=== PATIENT | female | born 1950 | race Caucasian/White ===

== ENCOUNTER 2016-05-16 19:13 | Emergency (ER) | payer MEDICARE ==
[~2016-05-16] VITALS: Ht 152.4 cm; Wt 52.3 kg
[~2016-05-16 19:13] MED LIST: BUDE10.2 IH; BUPR1FIL3 SL; BUSP5TAB3 PO; CITA20TA PO; CLON0.1T PO; CLON0.2T PO; HYDR-3740 PO; LEVO75TA4 PO; MORP-33 PO; NORT10CA PO; ONDA4TAB9 PO; ONDA8TAB10 PO; TIZA4CAP PO
[2016-05-16 19:19] VITALS: BP 119/68; PULSE 106; RESP 18; O2SAT 95
[2016-05-16 19:58] LABS: BASOPHILS % (AUTO) 0.3 % (0-3)
[2016-05-16 20:06] LABS: EOSINOPHILS % (AUTO) 0.8 % (0-5); MONOCYTES % (AUTO) 4.9 % (4-12); Mean Corpuscular Hemoglobin 30.7 pg (27.0-35.0); Mean Corpuscular Volume 88.1 fL (81-100); NEUTROPHILS % (AUTO) 85.2 % (40-74); Platelet Count 409 bil/L (150-400)
--- NOTE | 2016-05-16 20:17 | DRSVH ---
PROCEDURE: X-RAY CHEST ONE VIEW, PORTABLE ([id number]) INDICATIONS: cough, sob TECHNIQUE: One view of the chest was acquired. COMPARISON: [facility], CR, CHEST 2VW, 07/06/2013, 14:04. [facility], CR, C HEST 1VW (PORTABLE), 08/14/2009, 10:28. FINDINGS: Surgical changes and devices: None. Lungs and pleura: Bilateral chronic interstitial and airspace infiltrates, more pronounced in lower lobes. No pleural effusions or pneumothorax. Mediastinum: Mediastinal contours appear normal. Heart size is normal. Bones and chest wall: No suspicious bony lesions. Overlying soft tissues appear unremarkable. IMPRESSION: Bilateral chronic interstitial and airspace infiltrates consistent with chronic interstit ial lung disease although superimposed acute pneumonia cannot be excluded. Dictated by: Jan Billingsley M.D. on 05/16/2016 at 20:14 Approved by: Jan Billingsley M.D. on 05/16/2016 at 20:15
[2016-05-16 20:20] LABS: TROPONIN T < 0.010 ug/L (0.0-0.011)
--- NOTE | 2016-05-16 21:05 | ED.REPORT ---
HPI-Chest Pain 40 and Over Date of Service May 16, 2016 ED Provider: Clara Hu MD Patient is a 65 year old female with a history of COPD, hypertension, and retroperitoneal follicular lymphoma presents to the ED from Urgent Care due to increasing shortness of breath, chest pain, and productive cough after 3 weeks of upper respiratory symptoms. The patient states that she came down with a cold several weeks ago, which she assumes she got from her foster child. Patient was recently down in [place] due to a family emergency and was seen at an Urgent Care for her symptoms. Patient was started on Cephalexin and she improved for some time. However her symptoms then returned, developing a productive cough with green sputum. She reports chest pain with cough. Patient presented to Urgent Care today, who sent her to the ED to rule out PE vs. pneumonia. Patient previously had pneumonia 4 years ago and states that she did not have a pneumonia vaccine this year. She smokes <1ppd of cigarettes. Patient states that they drove down to [place]. She reports a diaphoresis, subjective fever, nausea, vomiting, swelling in her legs, or pain in her legs. Patient is not on chronic steroids and confirms that she typically has an O2 sat between 90-92%. Nursing Notes Stated Complaint: SENT FROM URGENT CARE POSS BLOOD CLOT Chief Complaint: Respiratory Complaints Nursing Notes Reviewed: Yes Allergies: Coded Allergies: metoclopramide HCl (Verified Allergy, Severe, highly anxous, 11/29/15) Antihistamines - Alkylamine (Verified Allergy, Unknown, Agitation, 11/29/15 ) hydroxyzine HCl (Verified Allergy, Unknown, Agitation, 11/29/15) hydroxyzine pamoate (Verified Allergy, Unknown, Agitation, 11/29/15) morphine (Verified Allergy, Unknown, Rash,Itching,, 11/29/15) tramadol (Verified Allergy, Unknown, Rash,Itching,, 11/29/15) Uncoded Allergies: Diphenhydramine (Adverse Reaction, Unknown, 02/03/05) HYPERACTIVE Scheduled Budesonide/Formoterol 80-4.5 mcg Inh (Symbicort 80-4.5 mcg Inh) 120 Puff/10.2 Gm Inhaler 1 PUFF IH BID Buprenorphine HCl/Naloxone HCl (Suboxone 8 mg-2 mg Sl Film) 1 Each Film 1 EACH SL BID Buspirone (Buspirone) 5 Mg Tablet 5 MG PO BID Citalopram Hydrobromide (Celexa) 20 Mg Tablet 20 MG PO DAILY Clonidine (Clonidine) 0.2 Mg Tablet 0.2 MG PO BID Doxycycline Hyclate (Doxycycline Hyclate) 100 Mg Capsule 100 MG PO BID Levothyroxine (Levothyroxine) 75 Mcg Tablet 75 MCG PO DAILY Morphine Sulfate ER (Morphine Sulfate ER) 30 Mg Tablet.er 30 MG PO TID Nortriptyline (Nortriptyline) 10 Mg Capsule 10 MG PO HS Ondansetron ODT (Ondansetron ODT) 8 Mg Tab.rapdis 8 MG PO QID Prednisone (PredniSONE) 20 Mg Tablet 40 MG PO DAILY Scheduled PRN Clonidine (Clonidine) 0.1 Mg Tablet 0.1 MG PO BID PRN PRN For Agitation Hydrocodone-Acetaminophen 10-325 mg (Hydrocodone-Acetaminophen 10-325 mg) 1 Tab Tablet 1 TAB PO TID PRN PRN For Pain Ondansetron ODT (Zofran ODT) 4 Mg Tablet 4 MG PO Q4H PRN PRN For Nausea Tizanidine (Zanaflex) 4 Mg Capsule 4 MG PO TID PRN PRN PRN For Pain General Time Seen by MD: 21:05 Chief Complaint Chest aching, Shortness of breath, Other (cough) Hx Obtained From: Patient Arrived By: Walk-in Sudden in Onset?: No Onset Occurred: More than a week ago... (worsening for the past few days) Symptom Duration: Since onset Location: : Chest left: Chest right Quality: Painful Severity: Current: Mild Severity: Maximum: Mild Recent Healthcare: No recent doctor visit, No recent hospitalization Similar Sx Previous: No Past Medical History Past Medical History Anxiety history of chronic narcotic use- on Suboxone localized grade 1, bulky retroperitoneal follicular lymphoma COPD fibromyalgia Reports: GERD, Hypertension Past Surgical History Reports: Hysterectomy Reports: Carpal tunnel Smoking History Current Every Day Smoker Social History Drug Use: Vicodin Other Social History: Good social support, Local resident Ambulatory Status Independent Review of Systems Constitutional: Denies: Chills, Fever Respiratory: Reports: Prod cough, green, Shortness of breath Cardiovascular: Reports: Chest pain GI: Denies: Diarrhea, Nausea, Vomiting Complete sys rev & neg: except as marked. Physical Exam Initial Vital Signs Vital Signs (First) Date Time Temp Pulse Resp B/P Pulse Ox O2 Delivery O2 Flow Rate FiO2 3/17/17 19:19 37.3 106 18 119/68 95 Room Air Initial VS: Reviewed Head / Eyes: Atraumatic, Normocephalic, PERRL ENT: Conjunctiva normal, No scleral icterus Neck: Supple, Full range of motion Skin: Warm, Dry, No cyanosis Neurologic: Alert, Oriented, Nonfocal Psychiatric: Mood/affect normal, Behavior normal, Normal thought content General/Constitutional: Awake, Alert, No acute distress, Well appearing Respiratory / Chest: No wheezing Rales / Rhonchi: Positive: Rhonchi diffuse coarse breath sounds bilaterally Cardiovascular: Regular rhythm, Heart sounds NL Heart Rate / Rhythm: Positive: Tachycardia Abdomen: Soft, Non-tender, No guarding, No rebound Skin: Warm Color / Condition: Positive: Diaphoresis present Wrist / Hand: Neurologic intact, Vascular intact clubbing of finger nails Interpretation & Diagnostics Lab Results Interpretation Result Diagram: 05/16/16194405/[id number]/[id number] Test 05/16/16 19:45 05/16/16 23:00 White Blood Count 26.0th/mm3 (3.8-10.1) Red Blood Count 4.04mil/mm3 (3.90-5.20) Hemoglobin 12.4g/dL (12.0-15.6) Hematocrit 35.6% (35.0-46.0) Mean Corpuscular Volume 88.1fL (81-100) Mean Corpuscular Hemoglobin 30.7pg (27.0-35.0) Mean Corpuscular Hemoglobin Concent 34.8% (32.0-37.0) Red Cell Distribution Width 13.5% (12.3-15.4) Platelet Count 409bil/L (150-400) Neutrophils (%) (Auto) 85.2% (40-74) Lymphocytes (%) (Auto) 8.2% (14-46) Monocytes (%) (Auto) 4.9% (4-12) Eosinophils (%) (Auto) 0.8% (0-5) Basophils (%) (Auto) 0.3% (0-3) Sodium Level 128mEq/L (134-144) Potassium Level 3.9mEq/L (3.5-5.2) Chloride Level 91mEq/L (97-108) Carbon Dioxide Level 21mmol/L (18-29) Blood Urea Nitrogen 13mg/dL (8-27) Creatinine 1.04mg/dL (0.57-1.00) Estimat Glomerular Filtration Rate 76mL/min (>59) Glucose Level 123mg/dL (60-99) Calcium Level 9.0mg/dL (8.5-10.1) Total Bilirubin 0.6mg/dL (0.0-1.2) Aspartate Amino Transf (AST/SGOT) 23U/L (0-50) Alanine Aminotransferase (ALT/SGPT) 16U/L (0-32) Alkaline Phosphatase 155U/L (25-165) Troponin T < 0.010ug/L (0.0-0.011) Pro-B-Type Natriuretic Peptide 431.5pg/mL (0-301) Total Protein 8.4g/dL (6.4-8.4) Albumin 3.9g/dL (3.4-5.0) Hold Rosenthal Top Tube Received (Received) Urine Color Yellow (YELLOW) Urine Appearance Hazy (CLEAR,HAZY) Urine pH 6.0 (5.0-8.0) Urine Specific [place] 1.005 (1.003-1.035) Urine Protein Negativemg/dL (NEG,TRACE) Urine Glucose (UA) Negativemg/dL (NEGATIVE) Urine Ketones Negativemg/dL (NEGATIVE) Urine Occult Blood Negative (NEGATIVE) Urine Nitrite Negative (NEGATIVE) Urine Bilirubin Negative (NEGATIVE) Urine Urobilinogen Normalmg/dL (NORMAL) Urine Leukocyte Esterase Small (NEGATIVE) Urine RBC 0-2/hpf (0-2) Urine WBC 0-5/hpf (0-5) Urine Epithelial Cells Moderate/hpf (NONE-MOD) Urine Crystals None seen (NONE SEEN) Urine Bacteria Moderate/hpf (NONE-FEW) Urine Hyaline Casts None/lpf (NONE) Urine Granular Casts None seen (NONE SEEN) Urine Waxy Casts None seen (NONE SEEN) Urine Red Blood Cell Casts None seen (NONE SEEN) Urine White Blood Cell Casts None seen (NONE SEEN) Urine Mucus None seen (None Seen) Urine Trichomonas None seen (NONE SEEN) Urine Yeast None (NONE SEEN) Urine Culture Reflexed Indicated ECG Interpretation ECG Interpretation: Sinus tachycardia, Rate 102 No STEMI Time: 22:37 Interpreted by: ED physician Normal ECG Interpretation: No change from prior ECGs X-Ray Chest Interpretation Chest Xray Interpretation: IMPRESSION: Bilateral chronic interstitial and airspace infiltrates consistent with chronic interstitial lung disease although superimposed acute pneumonia cannot be excluded. Dictated by: Jan Billingsley M.D. on 05/16/2016 at 20:14 Approved by: Jan Billingsley M.D. on 05/16/2016 at 20:15 View: Portable Interpretation / Wet Read by: Interpret - Radiologist CT Chest Interpretation CONCLUSION: No evidence of pulmonary embolism or thoracic aortic dissection. Fibrotic changes with subpleural emphysema. Bilateral alveolar pulmonary infiltrates which could be due to pulmonary edema and/or pneumonia. Hilar and mediastinal adenopathy. Radiologist: Reji Graham MD 05/16/2016 - 10:12:25 PM PDT Study type: CT pulm angiogram Interpretation / Wet Read by: Interpret - Radiologist Re-Eval/Medical Decision Med Decision/Clinical Course 65-year-old female with past medical history of COPD here with cough and tachycardia. Differential diagnosis includes but is not limited to PE versus pneumonia versus pleural effusion versus COPD exacerbation. Patient's CTA chest was negative for PE. Her chest x-ray and CTA were concerning for pneumonia. She has a white count of 26,000, without left shift. Her CMP shows mild hyponatremia. At this time, patient is requesting not to be admitted to the hospital. I feel she is safe to go home and reliable. She has gotten her first dose of doxycycline in the emergency department, along with a gram of Rocephin. She has been given very strict return precautions and is amenable to discharge with follow-up with her primary care physician. Source of Hx: Old records Time of Eval: 22:44 Patient Status: Condition improved Re-Evaluation/Progress Note: Rechecked the patient, who was informed that she has pneumonia. Patient understands and agrees with the plan to be discharged home. Discharge instructions and follow-up discussed. She will need close follow-up. All questions were addressed. Return to the ED warnings given. Counseled Regarding: Diagnosis, Lab results, Need for follow-up, When/why to return to ED Discharge & Departure Primary Impression: Pneumonia Pneumonia type: due to unspecified organism Laterality: bilateral Lung location: unspecified part of lung Qualified Code: J18.9 - Pneumonia, unspecified organism Disposition: Home Discharge Condition All VS Reviewed: Yes Condition: Stable Patient Instructions: Community-acquired Pneumonia (ED) Additional Instructions: Your chest x-ray and CT scan of your chest confirmed that you have pneumonia. You will be treated with Doxycycline. You have also been prescribed Prednisone, use as directed. Follow-up with your doctor early next week. Return to the Emergency Department if you experience fever, chest pain, shortness of breath, or any other concerning symptoms. Referrals: Zhane Severino (PCP) Scribe Attestation Portions of this note were transcribed by Katt Pat. I, Dr. Hu personally performed the history, physical exam and medical decision-making; I reviewed and confirmed the accuracy of the information in the transcribed note. Signed by: Leeanna Calixto, 05/16/2016 1185 copies to: Zhane Severino Rebecca A MD May 16, 2016 21:05 Katt Pat May 16, 2016 21:31
[2016-05-16] MEDS ORDERED: cefTRIAXone Inj 1,000 MG in Dextrose 5% Minibag Plus 50 ML IV ONE (21:35)
[2016-05-16] MEDS ORDERED: predniSONE 20 mg Tablet PO ONE (21:35)
[2016-05-16] MEDS ORDERED: 0.9% Sodium Chloride 500 ML IV ONE (22:35)
[2016-05-16] MEDS ORDERED: PRE20 PO (23:06)
[2016-05-16] MEDS ORDERED: DOXY100C2 PO (23:06)
[2016-05-16 23:22] VITALS: BP 119/51; PULSE 88; RESP 18; O2SAT 91
[2016-05-16 23:23] LABS: APPEARANCE,URINE HAZY (CLEAR,HAZY); COLOR,URINE YELLOW (YELLOW); OCCULT BLOOD,URINE NEGATIVE (NEGATIVE); UROBILINOGEN,URINE NORMAL (NORMAL)
--- NOTE | 2016-05-17 07:43 | DRSVH ---
PROCEDURE: CT ANGIO CHEST PULMONARY EMBOLISM ([id number]) INDICATIONS: cough, tachy TECHNIQUE: After the administration of intravenous contrast, 2 mm thick sections acquired from the pulmonary api daniel to the posterior costophrenic angles. 3-dimensional maximum intensity projection (MIP) coronal a nd sagittal reformats were then acquired through the thorax. For radiation dose reduction, the follo wing was used: automated exposure control, adjustment of mA and/or kV according to patient size. COMPARISON: None. FINDINGS: Image quality: Excellent. Pulmonary arteries: Pulmonary arteries are normal in size, and demonstrate no intraluminal filling d efects to suggest central pulmonary embolism. Lungs and pleura: Basilar predominant, scattered interstitial thickening with honeycombing is noted i n the lungs bilaterally. Patchy airspace opacities are noted in the lungs bilaterally with a upper lo be predominance. No pleural effusions or pneumothorax. Central and peripheral airways are patent. Mediastinum: Heart size is normal, without pericardial effusion. Large lymph nodes are noted in the mediastinum and the joao. Thoracic aorta is normal in caliber and enhancement. Esophagus is normal i n caliber, without hiatal hernia. Bones and chest wall: No suspicious bony lesions. Ribs and thoracic spine appear intact throughout. Thyroid gland is within normal limits.. No axillary or supraclavicular adenopathy. Abdomen: Visualized upper abdominal solid organs appear normal in the early arterial phase of enhanc ement. IMPRESSION: 1. No pulmonary embolus. 2. Bilateral lung interstitial thickening with honeycombing with chronic interstitial lung disease po ssibly UIP. 3. Patchy airspace opacities in the lungs bilaterally with upper lobe predominance which could be rel ated to chronic interstitial lung disease, pneumonia or less likely pulmonary edema. 4. Bilateral hilar and mediastinal lymphadenopathy which could be reactive or neoplastic.. Dictated by: Ruib Greenberg MD, PhD on 05/17/2016 at 7:34 Approved by: Rubi Greenberg MD, PhD on 05/17/2016 at 7:41
== END 2016-05-16 23:21 | disposition home or self-care (01) ==
LOC: SED 19:13
DX: J18.9 Pneumonia, unspecified organism (principal); M79.89 Other specified soft tissue disorders; K21.9 Gastro-esophageal reflux disease without esophagitis; J44.9 Chronic obstructive pulmonary disease, unspecified; I10 Essential (primary) hypertension; M79.7 Fibromyalgia; F17.200 Nicotine dependence, unspecified, uncomplicated; Z88.5 Allergy status to narcotic agent; Z88.8 Allergy status to other drugs, medicaments and biological substances
CPT/HCPCS: 36415; 71010; 71275; 80053; 81000; 83880; 84484; 85025; 87086; 93005; 96361; 96365; 99285; J0696; J7040; Q9967

== ENCOUNTER 2016-06-27 03:40 | Emergency (ER) | payer MEDICARE ==
[~2016-06-27] VITALS: Ht 152.4 cm; Wt 53.2 kg
[~2016-06-27 03:40] MED LIST changes: +DOXY100C2 PO; +PRE20 PO
[2016-06-27 03:44] VITALS: BP 147/79; PULSE 95; RESP 20; O2SAT 98
--- NOTE | 2016-06-27 04:01 | ED.REPORT ---
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 The patient is unsure if she injured her hip somehow, as the pain began rather rapidly. However she cannot identify a specific injury. She is unable to move her leg due to severe pain and that she has difficulty standing or ambulating. Her pain occasionally radiates into her back. She has been unable to sleep for the past 2 days due to severe pain. The patient last had an MRI of her hip in October of 2015. At that time her orthopedic surgeon stated that she may need surgery in the future. She has plans to contact her surgery again for repeat MRI and further work-up. The patient is a former [facility] patient who was on high doses of morphine for chronic pain. Last fall the patient was transitioned down to Vicodin and ultimately on to Suboxone for her chronic pain. The patient officially tapered off her Suboxone 1 month ago and is no longer taking any pain medication. 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 Nursing Notes Stated Complaint: HIP/ BACK PAIN Chief Complaint: Extremity Trauma Nursing Notes Reviewed: Yes Allergies: Coded Allergies: metoclopramide HCl (Verified Allergy, Severe, highly anxous, 11/29/15) Antihistamines - Alkylamine (Verified Allergy, Unknown, Agitation, 11/29/15 ) hydroxyzine HCl (Verified Allergy, Unknown, Agitation, 11/29/15) hydroxyzine pamoate (Verified Allergy, Unknown, Agitation, 11/29/15) morphine (Verified Allergy, Unknown, Rash,Itching,, 11/29/15) tramadol (Verified Allergy, Unknown, Rash,Itching,, 11/29/15) Uncoded Allergies: Diphenhydramine (Adverse Reaction, Unknown, 02/03/05) HYPERACTIVE Scheduled Budesonide/Formoterol 80-4.5 mcg Inh (Symbicort 80-4.5 mcg Inh) 120 Puff/10.2 Gm Inhaler 1 PUFF IH BID Buprenorphine HCl/Naloxone HCl (Suboxone 8 mg-2 mg Sl Film) 1 Each Film 1 EACH SL BID Buspirone (Buspirone) 5 Mg Tablet 5 MG PO BID Citalopram Hydrobromide (Celexa) 20 Mg Tablet 20 MG PO DAILY Clonidine (Clonidine) 0.2 Mg Tablet 0.2 MG PO BID Doxycycline Hyclate (Doxycycline Hyclate) 100 Mg Capsule 100 MG PO BID Levothyroxine (Levothyroxine) 75 Mcg Tablet 75 MCG PO DAILY Morphine Sulfate ER (Morphine Sulfate ER) 30 Mg Tablet.er 30 MG PO TID Nortriptyline (Nortriptyline) 10 Mg Capsule 10 MG PO HS Ondansetron ODT (Ondansetron ODT) 8 Mg Tab.rapdis 8 MG PO QID Prednisone (PredniSONE) 20 Mg Tablet 40 MG PO DAILY Scheduled PRN Clonidine (Clonidine) 0.1 Mg Tablet 0.1 MG PO BID PRN PRN For Agitation Hydrocodone-Acetaminophen 10-325 mg (Hydrocodone-Acetaminophen 10-325 mg) 1 Tab Tablet 1 TAB PO TID PRN PRN For Pain Ondansetron ODT (Zofran ODT) 4 Mg Tablet 4 MG PO Q4H PRN PRN For Nausea Tizanidine (Zanaflex) 4 Mg Capsule 4 MG PO TID PRN PRN PRN For Pain General Time Seen by Provider: 04:00 Chief Complaint Hip injury right Hx Obtained From: Patient Arrived By: Walk-in Onset Occurred: 2 days ago Symptom Duration: Since onset Quality: Painful Severity: Current: Severe Severity: Maximum: Severe Recent Healthcare: No recent doctor visit, No recent hospitalization Similar Sx Previous: Yes Past Medical History Past Medical History Anxiety history of chronic narcotic use- previously on Suboxone, now tapered off localized grade 1, bulky retroperitoneal follicular lymphoma COPD fibromyalgia known right hip ligamentum teres and superior labrum tears Reports: GERD, Hypertension Past Surgical History Reports: Hysterectomy Reports: Carpal tunnel Smoking History Current Every Day Smoker Social History Drug Use: Vicodin Other Social History: Good social support, Local resident Ambulatory Status Independent Review of Systems Constitutional: Denies: Chills, Fever Musculoskeletal: Reports: Back pain, Extremity pain, Joint pain Complete sys rev & neg: except as marked. Physical Exam Initial Vital Signs Vital Signs (First) Date Time Temp Pulse Resp B/P Pulse Ox O2 Delivery O2 Flow Rate FiO2 06/27/16 03:44 36.8 95 20 147/79 98 Room Air Initial VS: Reviewed, Vital signs normal Head / Eyes: Atraumatic, Normocephalic, PERRL ENT: Conjunctiva normal, No scleral icterus Neck: Supple, Full range of motion Skin: Warm, Dry, No cyanosis Neurologic: Alert, Oriented, Nonfocal Psychiatric: Mood/affect normal, Behavior normal, Normal thought content Lower Extremity / Pelvis / MS: Neurologic intact, Vascular intact Right Hip: Positive: ROM reduced... (due to discomfort), Tenderness present... (over the anterior and lateral hip), Negative: Swelling present..., Warmth present General/Constitutional: Awake, Alert, No acute distress Respiratory / Chest: No respiratory distress, No stridor Cardiovascular: Heart rate NL, Cap refill not delayed, Peripheral circulation NL Re-Eval/Medical Decision Med Decision/Clinical Course Acute exacerbation of chronic right hip pain. She was given a short duration prescription of narcotic pain medication. She will follow up with me at [facility] if the pain becomes more constant for more than a week. She will talk to her orthopedist about further evaluation of the hip and likely will get a repeat MRI. Source of Hx: Old records Re-Evaluation/Progress : Time of Eval: 04:50 Patient Status: Condition improved Re-Evaluation/Progress Note: Patient understands and agrees with the plan to be discharged home. Discharge instructions and follow-up discussed. All questions were addressed. Return to the ED warnings given. Counseled Regarding: Diagnosis, Need for follow-up, When/why to return to ED Discharge & Departure Impression: Primary Impression: Right hip pain Disposition: Home Discharge Condition All VS Reviewed: Yes Condition: Stable Patient Instructions: Hip Sprain (ED) Additional Instructions: You were given Dilaudid 1 mg IM. Oxycodone/acetaminophen (Percocet) 5/325, one or 2 tablets 4-6 hours as needed for severe pain, #10 dispensed. Follow up with orthopedics [facility] for further evaluation and possibly repeat MRI. Referrals: Zhane Severino (PCP) Scribe Attestation Portions of this note were transcribed by Katt Pat. I, Dr. Aguilar personally performed the history, physical exam and medical decision-making; I reviewed and confirmed the accuracy of the information in the transcribed note. Signed by: Leeanna Calixto, 06/27/2016 0510 copies to: Zhane Severino Howard L MD Jun 27, 2016 04:01 Katt Pat Jun 27, 2016 04:09
[2016-06-27] MEDS ORDERED: HYDROmorphone 1 mg/mL Inj IVPUSH ONE (04:10)
[2016-06-27] MEDS ORDERED: _oxyCODONE/APAP 5-325 mg Tablet PO PRN (04:10)
== END 2016-06-27 04:29 | disposition home or self-care (01) ==
LOC: SED 03:40
DX: M25.551 Pain in right hip (principal); J44.9 Chronic obstructive pulmonary disease, unspecified; K21.9 Gastro-esophageal reflux disease without esophagitis; I10 Essential (primary) hypertension; F17.200 Nicotine dependence, unspecified, uncomplicated; Z88.8 Allergy status to other drugs, medicaments and biological substances; Z88.5 Allergy status to narcotic agent
CPT/HCPCS: 96372; 99283; J1170

== ENCOUNTER 2016-07-03 01:15 | Emergency (ER) | payer MEDICARE ==
[~2016-07-03] VITALS: Ht 152.4 cm; Wt 52.3 kg
[2016-07-03 01:28] VITALS: BP 131/68; PULSE 92; RESP 16; O2SAT 95
--- NOTE | 2016-07-03 01:45 | ED.REPORT ---
HPI-Hip/Pelvis Prob/Inj Date of Service July 03, 2016 ED Provider: Jacques Aguilar MD Pt is a 66 y.o. 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 Pt denies sustaining any recent injury. Pt was seen in the ED on 06/27/16 for the same pain and worked-up. She has plans to follow-up with her orthopedic surgeon later this week. She is requesting Suboxone for pain relief. Pt recently tapered off of Suboxone 1 month ago. She reports her last opiate use at 2200 yesterday. Nursing Notes Stated Complaint: RT HIP PAIN Chief Complaint: Extremity Trauma Nursing Notes Reviewed: Yes Allergies: Coded Allergies: metoclopramide HCl (Verified Allergy, Severe, highly anxous, 07/03/16) Antihistamines - Alkylamine (Verified Allergy, Unknown, Agitation, 07/03/16) hydroxyzine HCl (Verified Allergy, Unknown, Agitation, 07/03/16) hydroxyzine pamoate (Verified Allergy, Unknown, Agitation, 07/03/16) morphine (Verified Allergy, Unknown, Rash,Itching,, 07/03/16) tramadol (Verified Allergy, Unknown, Rash,Itching,, 07/03/16) Uncoded Allergies: Diphenhydramine (Adverse Reaction, Unknown, 02/03/05) HYPERACTIVE Scheduled Budesonide/Formoterol 80-4.5 mcg Inh (Symbicort 80-4.5 mcg Inh) 120 Puff/10.2 Gm Inhaler 1 PUFF IH BID Buprenorphine HCl/Naloxone HCl (Suboxone 8 mg-2 mg Sl Film) 1 Each Film 1 EACH SL BID Buspirone (Buspirone) 5 Mg Tablet 5 MG PO BID Citalopram Hydrobromide (Celexa) 20 Mg Tablet 20 MG PO DAILY Clonidine (Clonidine) 0.2 Mg Tablet 0.2 MG PO BID Doxycycline Hyclate (Doxycycline Hyclate) 100 Mg Capsule 100 MG PO BID Levothyroxine (Levothyroxine) 75 Mcg Tablet 75 MCG PO DAILY Morphine Sulfate ER (Morphine Sulfate ER) 30 Mg Tablet.er 30 MG PO TID Nortriptyline (Nortriptyline) 10 Mg Capsule 10 MG PO HS Ondansetron ODT (Ondansetron ODT) 8 Mg Tab.rapdis 8 MG PO QID Prednisone (PredniSONE) 20 Mg Tablet 40 MG PO DAILY Scheduled PRN Clonidine (Clonidine) 0.1 Mg Tablet 0.1 MG PO BID PRN PRN For Agitation Hydrocodone-Acetaminophen 10-325 mg (Hydrocodone-Acetaminophen 10-325 mg) 1 Tab Tablet 1 TAB PO TID PRN PRN For Pain Ondansetron ODT (Zofran ODT) 4 Mg Tablet 4 MG PO Q4H PRN PRN For Nausea Tizanidine (Zanaflex) 4 Mg Capsule 4 MG PO TID PRN PRN PRN For Pain General Time Seen by Provider: 01:44 Chief Complaint Hip injury right Hx Obtained From: Patient Arrived By: Walk-in Onset Occurred: 1 week ago Symptom Duration: Since onset Location: Hip, R posterior aspect Quality: Painful Severity: Current: Severe Severity: Maximum: Severe Recent Healthcare: Recent doctor visit Similar Sx Previous: Yes Past Medical History Past Medical History Anxiety history of chronic narcotic use- previously on Suboxone, now tapered off localized grade 1, bulky retroperitoneal follicular lymphoma COPD fibromyalgia 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 Physical Exam Initial Vital Signs Vital Signs (First) Date Time Temp Pulse Resp B/P Pulse Ox O2 Delivery O2 Flow Rate FiO2 07/03/16 01:28 36.8 92 16 131/68 95 Room Air Initial VS: Reviewed, Vital signs normal Head / Eyes: Atraumatic, Normocephalic Abdomen / GI: No distention Upper Extremities: Vascular intact, Neuro intact Skin: Warm, Dry, No cyanosis Neurologic: Alert, Oriented, Nonfocal Lower Extremity / Pelvis / MS: Atraumatic, No deformity, Neurologic intact, Vascular intact Pain with ROM of right hip Pt is ambulatory General/Constitutional: Awake, Alert, Well appearing, Well developed, Well hydrated, Well nourished, Not toxic appearing Re-Eval/Medical Decision Source of Hx: Old records Re-Evaluation/Progress : Time of Eval: 02:03 Re-Evaluation/Progress Note: Discussed need for follow-up on Thursday and plan for discharge, pt understands and agrees with plan. Counseled Regarding: Diagnosis, Need for follow-up, When/why to return to ED Discharge & Departure Impression: Primary Impression: Right hip pain Disposition: Home Discharge Condition All VS Reviewed: Yes Condition: Improved Patient Instructions: Buprenorphine/Naloxone (By mouth) Additional Instructions: I agree with your plan to switch back over to Suboxone. Do not take anymore of the pain pills. In approximately another 20 hours you can take 4-8 mg of Suboxone. In the meantime you can use anti-inflammatories, Tylenol, and the clonazepam. Do not use clonazepam or alprazolam with the Suboxone. Suboxone 8/ 2 film, 1 sublingual daily #5 prescribed. Contact the priority access line at [phone] to schedule an appointment to see me on Thursday at [facility]. Referrals: Zhane Severino (PCP) [employer] Attestation Portions of this note were transcribed by Darwin Ken. I, Dr. Aguilar personally performed the history, physical exam and medical decision-making; I reviewed and confirmed the accuracy of the information in the transcribed note. Signed by: Leeanna Kennedy, 07/03/16 and 0000 copies to: Zhane Severino Howard L MD July 03, 2016 01:45 DARWIN KEN July 03, 2016 02:06
[2016-07-03] MEDS ORDERED: BUPR1FIL3 SL (02:18)
[2016-07-03 02:28] VITALS: PULSE 86; RESP 16
== END 2016-07-03 02:28 | disposition home or self-care (01) ==
LOC: SED 01:15
DX: M25.551 Pain in right hip (principal); I10 Essential (primary) hypertension; M79.1 Myalgia; F17.200 Nicotine dependence, unspecified, uncomplicated; Z79.899 Other long term (current) drug therapy; Z88.5 Allergy status to narcotic agent; Z88.8 Allergy status to other drugs, medicaments and biological substances
CPT/HCPCS: 96372; 99283; J1885